=== PATIENT | male | born 1975 | race Caucasian/White ===

== ENCOUNTER 2018-02-19 10:39 | Emergency (ER) | payer MEDICAID ==
[~2018-02-19] VITALS: Ht 182.9 cm; Wt 91.0 kg
[~2018-02-19 10:39] MED LIST: ACET-2178
[2018-02-19] MEDS ORDERED: PANTOPRAZOLE SODIUM 40 MG/VIAL IV STA (11:07)
[2018-02-19] MEDS ORDERED: SODIUM CHLORIDE 0.9% 1,000 ML IV ONE (11:07)
[2018-02-19] MEDS ORDERED: FENTANYL CITRATE/PF 50MCG/ML 2ML VIAL IV ONE (11:15)
[2018-02-19 11:41] LABS: BASOPHILS % 0.2 % (0.0-2.0); EOSINOPHILS % 1.5 % (0.0-5.0); HEMOGLOBIN. 15.4 g/dL (14.0-18.0); LYMPHOCYTES % 16.1 % (20.0-50.0); MEAN CORPUSCULAR HEMOGLOBIN 29.3 pg (28.0-32.0); MEAN CORPUSCULAR VOLUME 85.7 fL (80.0-94.0); MEAN PLATELET VOLUME 8.6 fl (7.4-10.4); MONOCYTES % 8.5 % (2.0-8.0); NEUTROPHILS % 73.7 % (40.0-76.0); PLATELET 219 x1000/uL (130-400); RED BLOOD CELL COUNT 5.25 mill/uL (4.7-6.1); RED CELL DISTRIBUTION WIDTH 13.3 % (11.6-14.6)
[2018-02-19 11:48] LABS: CHLORIDE 107 mEq/L (98-107)
[2018-02-19 11:53] LABS: INR 1.1; PARTIAL THROMBOPLASTIN TIME 26.4 sec (23.4-31.0); PROTHROMBIN TIME 10.6 sec (9.1-11.1)
[2018-02-19 12:58] LABS: CLARITY URINE CLEAR (CLEAR); COLOR URINE DARK YELLOW (YELLOW); KETONES URINE 1+ (NEGATIVE); LEUKOCYTE ESTERASE URINE NEGATIVE (NEGATIVE); NITRITE URINE NEGATIVE (NEGATIVE); OCCULT BLOOD URINE 2+ (NEGATIVE); PROTEIN URINE 1+ (NEGATIVE); UROBILINOGEN URINE 0.2 E.U./dL (0.2-1.0)
[2018-02-19] MEDS ORDERED: PIPERACILLIN/TAZ 3.375G PREMIX 50 ML IV ONE (13:30)
[2018-02-19 14:36] VITALS: BP 142/86
== END 2018-02-19 14:38 | disposition home or self-care (01) ==
LOC: ER 10:39 → CANRESERV 13:20 → ENRESERV 13:20 → CANBEDREQ 14:37 → ER 14:38
DX: K62.5 Hemorrhage of anus and rectum (principal); K52.9 Noninfective gastroenteritis and colitis, unspecified; Z90.49 Acquired absence of other specified parts of digestive tract
CPT/HCPCS: 36415; 74176; 80053; 81003; 83690; 85025; 85610; 85730; 86850; 86900; 86901; 96361; 96365; 96375; 99284; C9113; J2543; J3010; J7030

== ENCOUNTER 2018-02-20 10:12 | Emergency (ER) | payer MEDICAID ==
[~2018-02-20] VITALS: Ht 182.9 cm; Wt 92.1 kg
[2018-02-20 10:30] VITALS: BP 127/86
== END 2018-02-20 11:30 | disposition home or self-care (01) ==
LOC: ER 10:12
DX: R10.32 Left lower quadrant pain (principal); Z90.49 Acquired absence of other specified parts of digestive tract
CPT/HCPCS: 99281; 99283

== ENCOUNTER 2021-10-05 08:07 | Emergency (ER) | payer MEDICAID ==
[~2021-10-05] VITALS: Ht 167.6 cm; Wt 88.0 kg
[~2021-10-05 08:07] MED LIST changes: -ACET-2178; +TOPUD
[2021-10-05] MEDS ORDERED: HYDROCODONE/ACETAMINOPHEN 5/325MG TABLET PO ONE (09:15)
[2021-10-05] MEDS ORDERED: IBUP-2029 MT (11:09)
[2021-10-05] MEDS ORDERED: HYDR-4001 MT (11:09)
[2021-10-05 11:59] VITALS: BP 126/75
== END 2021-10-05 12:05 | disposition home or self-care (01) ==
LOC: ER 08:38
DX: S82.451A Displaced comminuted fracture of shaft of right fibula, initial encounter for closed fracture (principal); R03.0 Elevated blood-pressure reading, without diagnosis of hypertension; W18.2XXA Fall in (into) shower or empty bathtub, initial encounter; Y93.89 Activity, other specified; Y92.012 Bathroom of single-family (private) house as the place of occurrence of the external cause
CPT/HCPCS: 29515; 73610; 99283

== ENCOUNTER 2021-10-14 13:21 | Emergency (ER) | payer MEDICAID ==
[~2021-10-14] VITALS: Ht 167.6 cm; Wt 89.0 kg
[~2021-10-14 13:21] MED LIST changes: +HYDR-4001 MT; +IBUP-2029 MT
[2021-10-14 13:28] VITALS: BP 163/109
== END 2021-10-14 16:45 | disposition left against medical advice (07) ==
LOC: ER 13:21
DX: Z53.21 Procedure and treatment not carried out due to patient leaving prior to being seen by health care provider (principal)